=== PATIENT | male | born 1950 | race Caucasian/White ===

== ENCOUNTER 2020-07-28 10:42 | Observation (INO) ==
--- NOTE | 2020-06-30 09:05 | PAT Medication Instructions ---
Medication Instructions Date of Service June 30, 2020 Home Medications Medication Instructions Recorded Kendra Toth #1 ea 05/27/20 meloxicam 15 mg tablet 7.5 mg PO QAM Prostate Health Otc 1 tab PO BID amlodipine-valsartan 1 tab PO QPM ascorbic acid (vitamin C) [Vitamin C] 1,000 mg PO QAM cholecalciferol (vitamin D3) [Vitamin D3] 125 mcg PO QAM ASK your surgeon for instructions meloxicam 15 mg tablet 7.5 mg PO QAM STOP taking 2 weeks before surgery (or as soon as possible if surgery is within 2 weeks) Prostate Health Otc 1 tab PO BID DO NOT take the morning of surgery ascorbic acid (vitamin C) [Vitamin C] 1,000 mg PO QAM cholecalciferol (vitamin D3) [Vitamin D3] 125 mcg PO QAM Take evening before surgery amlodipine-valsartan 1 tab PO QPM Other Notes If you have any questions please call us at [phone] or [phone] or [phone] or [phone]
--- NOTE | 2020-07-04 12:35 | Anesthesiology Consultation ---
Date of Service July 04, 2020 Assessment & Plan (1) Encounter for pre-operative examination: COVID screening: Per assessment on 07/04: Travel screen negative, no known COVID- 19 positive contacts or current COVID-19 related symptoms. Patient fully vaccinated. Surgeon arranging preop COVID testing (scheduled 07/22; [facility]). Awaiting results. Chart Review Chart Review: Acceptable Risk for Surgery and Patient seen in Pre Admission Testing Teaching & Discussion Pre-Anesthesia Teaching/Discussion Notes: Instructed NPO after midnight before surgery,except medications with 15 cc of water. Medication instructions provided according to the PAT guidelines. History Surgery Operation Date: 07/28/20 07:30 Proposed Procedures p Right Unilateral Comparmental Arthropasty Versus - Lenny Wang MD s Right Total Knee Arthroplasty - Lenny Wang MD Height/Weight Height: 5 ft 10 in Weight: 106.4 kg Allergies Allergy/AdvReac Type Severity Reaction Status Date / Time No Known Allergies Allergy Verified 06/24/20 10:50 Medications Home Medications Medication Instructions Recorded Confirmed Last Taken meloxicam 15 mg tablet 7.5 mg PO QAM 05/05/20 06/24/20 Unknown Wheeled Walker #1 ea 05/27/20 05/27/20 Unknown Prostate Health Otc 1 tab PO BID 06/24/20 06/24/20 Unknown amlodipine-valsartan 1 tab PO QPM 06/24/20 06/24/20 Unknown ascorbic acid (vitamin C) [Vitamin 1,000 mg PO QAM 06/24/20 06/24/20 Unknown C] cholecalciferol (vitamin D3) 125 mcg PO QAM 06/24/20 06/24/20 Unknown [Vitamin D3] alfuzosin 10 mg tablet,extended 10 mg PO DAILY #30 tab 07/04/20 07/04/20 Unknown release 24 hr Past Medical History Medical History Hypertension Obesity Right knee DJD Exercise / Class Metabolic Activity II 4-5 Yardwork/Stairs/Walk up hill (one flight of stairs (no chest pain, no sob)) Past Family History Family History (Updated 07/04/20 @ 14:22 by Jhonny Blackwell) Sister Family history of diabetes mellitus Mother Diabetes Hypertension Father Lung cancer Past Surgical History Surgical History History of colonoscopy 2020 History of hand surgery Left History of herniorrhaphy Umbilical Past Anesthesia History No Hx of Anesthesia Complications and No Family Hx of Anesthesia Complications History of PONV No Hx of PONV and No Hx of Motion Sickness Social History Smoking Status: Never smoker Do You Dip or Chew Tobacco: No Hx Alcohol Use: Yes Alcohol type: beer alcohol intake frequency: a few times a week Hx Substance Use: No Review of Systems No snoring. Patient denies chest pain, shortness of breath, dyspnea on exertion, fever, chills, cough, wheezing, palpitations. Physical Exam Vital Signs VITALS BP 122/72 P 70 TEMP 98.5 SP02 96%RA RESP 16 PHYSICAL Full cervical extension range of motion. Full TMJ range of motion. TMD 3.5 finger breaths Mallampati Score 2 Dentition: intact, + implants (upper front) Lungs: clear throughout to auscultation Cardiac: regular rate and rhythm, no murmurs noted Spine: normal Carotid arteries: negative bruit Extremities: no edema Testing Laboratory Results 07/04/20 12:56 07/04/20 12:56 PT 9.8 Seconds (9.0-12.0) 07/04/20 12:56 INR 1.0 (0.9-1.1) 07/04/20 12:56 APTT 24.7 Seconds (21.0-31.0) 07/04/20 12:56 Blood Type A Positive 07/04/20 12:56 Antibody Screen NEGATIVE 07/04/20 12:56 Electrocardiogram Date: 07/04/20 Sinus rhythm with first-degree AV block at 61 bpm. Otherwise normal ECG. Chest X-Ray Date: 07/04/20 FINDINGS: Lung volumes are normal. Lungs are clear. There is no pneumothorax or pleural effusion. Cardiac size is normal. Mediastinal contours are normal. There is no evidence for pulmonary edema. IMPRESSION: No acute cardiopulmonary findings.
--- NOTE | 2020-07-04 13:38 | XRay Report ---
XR chest Pre-admission PA/Lat CLINICAL HISTORY: Preoperative evaluation. COMPARISON STUDY: No previous studies for comparison. FINDINGS: Lung volumes are normal. Lungs are clear. There is no pneumothorax or pleural effusion. Car diac size is normal. Mediastinal contours are normal. There is no evidence for pulmonary edema. IMPRESSION: No acute cardiopulmonary findings. ACT 112: Negative or not required by law. Electronically signed by: Lizandro Tavera M.D. 07/04/2020 1:36 PM
[2020-07-04 14:04] LABS: Basophils # (auto) 0.03 K/uL (0-0.2); Basophils % (auto) 0.5 %; Eosinophils % (auto) 6.7 %; Hematocrit (blood only) 41.3 % (42-52); Hemoglobin 14.7 g/dL (14.0-18.0); Immature Granulocytes # (auto) 0.02 K/uL (0.00-0.02); Immature Granulocytes % (auto) 0.3 %; Lymphocytes # (auto) 2.03 K/uL (1.2-3.4); Lymphocytes % (auto) 34.2 %; Mean Corpuscular Hemoglobin 32.5 pg (25-34); Mean Corpuscular Hgb Conc 35.6 g/dL (32-36); Mean Corpuscular Volume 91.2 fL (80-100); Mean Platelet Volume 11.1 fL (7.4-10.4); Monocytes # (auto) 0.65 K/uL (0.11-0.59); Monocytes % (auto) 10.9 %; Neutrophils # (auto) 2.81 K/uL (1.4-6.5); Neutrophils % (auto) 47.4 %; Platelet Count 183 K/uL (130-400); RDW Coefficient of Variation 13.2 % (11.5-14.5); RDW Standard Deviation 43.7 fL (36.4-46.3); Red Blood Count 4.53 M/uL (4.7-6.1); White Blood Count 5.94 K/uL (4.8-10.8)
[2020-07-04 14:17] LABS: Partial Thromboplastin Ratio 0.9; Partial Thromboplastin Time 24.7 Seconds (21.0-31.0); Prothrombin Time 9.8 Seconds (9.0-12.0)
[2020-07-04 14:18] LABS: BUN Creatinine Ratio 25.6 (10-20); Calcium 8.7 mg/dl (8.5-10.1); Creatinine Clr Calc Pharmacy 91.9 ml/min; Est GFR (African American) 96.2; Potassium 4.4 mmol/L (3.5-5.1)
--- NOTE | 2020-07-04 14:24 | Electrocardiogram Report ---
Test Reason : Blood Pressure : / mmHG Vent. Rate : 061 BPM Atrial Rate : 061 BPM P-R Int : 212 ms QRS Dur : 082 ms QT Int : 418 ms P-R-T Axes : 072 087 054 degrees QTc Int : 420 ms Sinus rhythm with 1st degree A-V block Otherwise normal ECG No previous ECGs available Confirmed by Pillo Gonzalez ([id number]) on 07/04/2020 2:23:57 PM Referred By: Lenny Wang Confirmed By:Pillo Gonzalez
--- NOTE | 2020-07-23 12:48 | History and Physical Report ---
DATE OF ADMISSION: 07/28/2020 CHIEF COMPLAINT: Persistent progressive right medial knee pain, discomfort and swelling. HISTORY OF PRESENT ILLNESS: The patient is a 70-year-old very active gentleman who presents for followup and treatment of his right knee. He now has about a 6-month history of increasing medial knee pain and discomfort, unresponsive to conservative treatment. No real particular injury. Just kind of started insidiously. He has been through extensive conservative treatment including medicines as well as therapy and exercises as well as multiple aspirations and injections. Despite this, he continues to be bothered by medial pain and swelling. 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 He limps all the time and worse as the day goes on. He has nighttime pain. PAST MEDICAL HISTORY: 1. Hypertension. 2. Obesity with BMI of 34. PAST SURGICAL HISTORY: Includes, 1. Hernia repair. 2. Left small finger surgery. ALLERGIES: None. CURRENT MEDICATIONS: Include, 1. Amlodipine. 2. Meloxicam. SOCIAL HISTORY: A 70-year-old male. He is from [place]. He does not smoke. FAMILY HISTORY: Noncontributory. REVIEW OF SYSTEMS: Negative for diabetes, neurologic problem, vascular problem, bleeding disorders. No chest pain or shortness of breath. No history of DVT or PE. PHYSICAL EXAMINATION: GENERAL: Shows a pleasant, middle-aged male, looks to be in pretty good health. HEENT: Benign. NECK: Supple, no lymphadenopathy. LUNGS: Clear to auscultation. HEART: Has a regular rate and rhythm. ABDOMEN: Soft, nontender, nondistended. EXTREMITIES: Grossly neurovascularly intact except as follows: Examination of the right knee reveals the patient walks with a bit of a limp. He has got a varus deformity to his knee. He has got a moderate sized knee effusion. Range of motion is full extension to 125 degrees of flexion. There is no instability. ACL appears intact. X-RAYS: X-rays of the right knee are reviewed. It shows a moderately advanced medial compartment DJD. He has got 50% loss of his medial joint space. MRI was also reviewed. It shows advanced medial compartment arthritis. He does have tearing of his medial meniscus, but the meniscus is extruded out of the joint. He has got bone marrow changes in the medial femoral condyle and medial tibial plateau. Large knee joint effusion. ASSESSMENT: A 70-year-old male with a 6-month history of persistent progressive right knee pain and discomfort, unresponsive to conservative care. This all points to the medial aspect of his knee where he is developing increasing arthritic problems. He is having trouble doing his job and maintaining his business due to the pain. PLAN: We talked about treatment options. He has failed conservative treatment. We are going to proceed with a right partial knee replacement. If we get in there and the arthritis is too extensive, we will do a full knee replacement. The risks and benefits of this procedure were explained to the patient including but not limited to DVT, PE, , infection, neurological injury, vascular injury, bleeding problem, pain, limited range of motion, stiffness, failure to relieve his symptoms, incomplete relief of symptoms, need for further surgery in the future, fracture, dislocation, and need for conversion to a full knee replacement. The patient understands and desires to proceed. Informed consent was obtained.
[~2020-07-28 10:42] MED LIST: ACETAMINOPHEN 500 MG TAB PO SCH; BUPIVACAINE 0.25% 30 ML VIAL ONE; BUPIVACAINE 0.5 % 5 MG/1 ML PF 10ML VIAL ONE; BUPIVACAINE LIPOSOME/PF 266 MG, BUPIVACAINE/EPINEPHRINE 50 ML, SODIUM CHLORIDE 0.9% 30 ... INFIL SCH; EPINEPHrine INJ 1 MG/ML AMP ONE; FAMOTIDINE 20 MG TAB PO SCH; GABAPENTIN 300 MG CAP PO SCH; LR 500ML BOLUS, THEN 15ML/HR IV SCH; LR 60ML/HR IV SCH; Scopolamine 1 MG TDSY TD SCH; TRANEXAMIC ACID 1,000 MG **IV Intra-op IV SCH; ceFAZolin 2000MG 2,000 MG/15 ML SYR IV SCH
--- NOTE | 2020-07-28 10:55 | History & Physical Bridge Note ---
Date of Service July 28, 2020 History & Physical Bridge Note I have examined the patient, reviewed the History & Physical and in the interval since the performance of the History & Physical I have noted the following changes of clinical significance: no changes noted
[2020-07-28] MEDS ORDERED: MIDAZOLAM HCL 1 MG/ML 2ML VIAL ONE (11:41)
[2020-07-28] MEDS ORDERED: PROPOFOL IV EMULSION 10 MG/ML 20 ML VIAL IV ONE ×5 (11:42→16:05)
[2020-07-28] MEDS ORDERED: ONDANSETRON INJ 2 MG/ML 2 ML VIAL IV PRN ×2 (11:50→17:07)
[2020-07-28] MEDS ORDERED: HYDROmorphone INJ 2 MG/ML SYR/VIAL IV PRN (11:50)
[2020-07-28] MEDS ORDERED: ePHEDrine sulfate 50 MG/ML AMP IV PRN (11:50)
[2020-07-28] MEDS ORDERED: ATROPINE SULFATE 0.1 MG/ML 10ML SYR IV PRN (11:50)
[2020-07-28] MEDS ORDERED: fentaNYL citrate 100 MCG/2 ML VIAL IV PRN (11:50)
[2020-07-28] MEDS ORDERED: BUPIVACAINE LIPOSOME 1.3% 266 MG/20 ML VIAL ONE (12:53)
[2020-07-28] MEDS ORDERED: SODIUM CHLORIDE 0.9% PF 50 ML VIAL ONE (12:53)
[2020-07-28] MEDS ORDERED: EPINEPHrine INJ 1 MG/ML AMP ONE (12:53)
[2020-07-28] MEDS ORDERED: BUPIVACAINE 0.25% 30 ML VIAL ONE (12:53)
[2020-07-28] MEDS ORDERED: VANCOMYCIN HCL 1000MG/20ML VIAL ONE ×2 (14:52→15:24)
[2020-07-28] MEDS ORDERED: fentaNYL citrate 100 MCG/2 ML VIAL ONE (15:25)
[2020-07-28] MEDS ORDERED: ceFAZolin 1000MG 1,000 MG/7.5 ML SYR IV ONE (16:10)
--- NOTE | 2020-07-28 16:19 | Post Operative Brief Note ---
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 Right Knee Bone and Tissue Drains Grey Catheter Anesthesia Type Spinal MAC Complications none Disposition Accompanied Patient To Recovery: No Disposition: Recovery Room
--- NOTE | 2020-07-28 16:44 | Anesthesiology Progress Note ---
Date of Service July 28, 2020 Anesthesia Post Procedure Vital Signs Vital Signs: Temp Pulse Pulse Resp BP BP Pulse Ox 07/28/20 16:35 59 L 14 141/66 H 98 07/28/20 16:27 36.6 C 67 17 117/75 97 07/28/20 11:10 37.1 C 65 18 159/78 H 92 Transfer of Care Handoff Completed per policy Notes Mental Status: alert / awake / arousable and participated in evaluation Patient Amnestic to Procedure: Yes Nausea / Vomiting: adequately controlled Pain: adequately controlled Airway Patency, RR, SpO2: stable & adequate BP & HR: stable & adequate Hydration State: stable & adequate Anesthetic Complications: no major complications apparent and Pt Satisfied with anesthetic care
--- NOTE | 2020-07-28 16:53 | XRay Report ---
RIGHT KNEE 2 VIEWS History: Right total knee arthroplasty. Degenerative arthritis. Postop. FINDINGS: The patient is status post a right total knee arthroplasty. The hardware is intact. No frac ture or dislocation. Skin jorge are in place. IMPRESSION: Right total knee arthroplasty. No evidence for hardware complication. ACT 112: Negative or not required by law. Electronically signed by: Francisco Goodson M.D. 07/28/2020 4:51 PM
[2020-07-28] MEDS ORDERED: NALOXONE HCL 0.4 MG/1 ML VIAL/CARP IV PRN (17:07)
[2020-07-28] MEDS ORDERED: TAMSULOSIN HCL 0.4 MG CAP PO PRN (17:07)
[2020-07-28] MEDS ORDERED: METOCLOPRAMIDE HCL INJ 5 MG/ML 2 ML VIAL IV PRN (17:07)
[2020-07-28] MEDS ORDERED: MAGNESIUM HYDROXIDE SUSP 30 ML UDC PO PRN (17:07)
[2020-07-28] MEDS ORDERED: oxyCODONE HCL IR 5 MG TAB (IMMEDIATE RELEASE) PO PRN (17:07)
[2020-07-28] MEDS ORDERED: ALUMINUM/MAGNESIUM SUSP 30 ML UDC PO PRN (17:07)
[2020-07-28] MEDS ORDERED: bisacodyL 10 MG SUPP PR PRN (17:07)
[2020-07-28] MEDS ORDERED: HYDROmorphone INJ 0.5 MG/0.5 ML SYR IV PRN (17:07)
[2020-07-28] MEDS: Scopolamine CHECK PATCH PLACEMENT SCH (17:26)
[2020-07-28] MEDS: KETOROLAC TROMETHAMINE 15 MG/ML VIAL IV SCH (17:54)
[2020-07-28] MEDS: SODIUM CHLORIDE 0.9% 1000ML 1,000 ML IV SCH (17:54)
--- NOTE | 2020-07-28 18:29 | Operative Report ---
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 There was not any significant eburnation. He had a large knee joint effusion. He did have a quarter sized grade 4 lesion of his trochlea. The patella was fairly well-preserved. The lateral compartment was well-preserved. Fluids 1700 cc. Specimens Right knee sent for pathology. Anesthesia Type Spinal MAC Complications none Disposition Accompanied Patient To Recovery: No Disposition: Recovery Room Indications Patient is a 70-year-old very active gentleman has had a 6-month history of have progressive increasing right knee pain discomfort unresponsive conservative care. X-rays showed significant medial compartment arthritis. An MRI showed significant bone marrow edema at the medial femoral condyle medial till plateau as well as extrusion medial meniscus and a large knee joint effusion. Patient failed all conservative measures and elected proceed with surgical treatment. The plan was to do a partial or total knee replacement. Description of Procedure Operative implants consist of: 1. Biomet Vanguard size 72.5 right posterior stabilized femoral component. 2. Biomet size 79 tibial tray. 3. 12 mm posterior stabilized polyethylene insert. 4. 31 x 8 all polypatella. The patient was taken to the operating, identified, placed on the operating table supine position but all contact areas were properly padded IV antibiotics tried by anesthesia team. A spinal anesthetic and abductor canal block had provided in the holding area. Grey catheter was placed in sterile fashion a right thigh turn was then placed in the right lower extremities and prepped and draped in usual sterile fashion. The right leg was elevated exsanguinated with use of an Esmarch interspace at 300 mmHg. An anterior approach to the right knee was then performed to a longitudinal incision beginning at the superior pole of the patella and extending just medial to the tibial tubercle. Sharp dissection got through subcutaneous tissue to the tissues to the level of the extensor mechanism. A medial parapatellar arthrotomy incision was made. Some subperiosteal dissection was carried out medially. Great care was taken throughout the procedure protect the medial collateral ligament. The fat pad was dissected from each patella tendon. I then flexed the knee. The osteophytes from the intercondylar notch were removed. The medial compartment was obviously worn. I examined the rest of the knee. The ACL was intact. The lateral compartment was well-preserved. There was 1 central area of the trochlea about the size of a quarter with some grade 4 changes but I felt this was acceptable to proceed with partial knee replacement as he has no patellofemoral symptoms. The femur was sized to a size large. The area tibial alignment guide was placed in the interface of the tibia and attached to the large spoon the tibial guide was pinned in place. The proximal tibial cut was made. The cut seemed a little bit shallow so I do not remove the vilma and I took an additional 2 mm above bone. I then sized the tibia to a D. Attention drawn the femur. The distal femur stem with a sharp drill bit intramedullary guide was placed. A large template was then attached to the IM guide and the holes were drilled for the femoral component. There seemed to be a slight bit of an abnormal angle to this and I examined it many times but it was what the guide had to place test and seemed within a very functional range of. The posterior cutting guide was placed and posterior cut was made. The 0 spigot was placed in the distal femur was milled. The medial meniscus was excised. I then placed the femoral component along with a tibial tray and the 3 feeler gauge fit appropriate but just a little bit tight but felt this was appropriate. Brought the knee out in extension and I could not even place the #1 medina. Therefore we proceeded to milled the distal femur with a 3 spigot. I then trialed the knee again and could only get the 1 as she had him in in extension. Therefore I milled the distal femur an additional 2 mm. I then felt the knee was quite balanced with the 3 feeler gauge in both flexion and extension. Everything seemed to track appropriately. We elect to place these implants. Trial implants removed. The cement drill was used to create holes in the distal femur for cement interdigitation. The posterior osteophyte cutting guide was placed and the posterior osteophyte was removed along with the milling device for the anterior portion of the femoral component. The tibial tray was then pinned in place and the toothbrush blade was used to create the defect in the proximal tibia for the tibial tray. I then trialed the knee. I could foot the 3 feeler gauge in part quite appropriately but I cannot even place the 3 trial implant. Having done this and feeling like all the measurements were just off slightly in this gentleman's knee and the femoral component seem to be just slightly malaligned I felt most appropriate to switch to a total knee replacement as I did not think this is then aware. Therefore I will I left the trial implants in place and we elect to proceed with total knee replacement. The knee incision was extended proximally. A medial patellar arthrotomy was then extended proximally as well. The knee was flexed. The ACL and PCL were released from the distal femur and the tibia subluxated anteriorly. External tibial alignment jig was then placed in the interface the tibia and adjusted to 14 mm medially. I made the cut flush with the previous tibial cut to take it no additional bone medially. Did take a fairly large piece off laterally. Sized the tibia to a size 79. Attention drawn the femur. Distal femur turned the sharp drill. Intramedullary canal was suction. A right 6 degree valgus cutting guide was placed. The distal femoral cutting block was pinned in place. Distal femoral cut was made to take an additional 3 mm of bone off distal femur. The femur was then sized to a size 72.5. The 8 cutting block was pinned parallel to the epicondylar axis. We could not really make this a high degree due to the previous posterior cut medially and I had alignment with the trochlea and Whitesides lines as as well as the epicondylar axis. The AP cutting block was pinned in place and the anterior cut, anterior chamfer, posterior cut, posterior chamfer cuts were made. Box cutting guide was placed in just slight lateral box cut was made. The knee was flexed. The remnants of the medial lateral menisci were excised. The osteophytes were taken off the posterior aspect of the femur. A trial femoral component was placed. The tibial tray was pinned in maximum external rotation and the drill and stem punch were used to create defect in proximal tibia for the tibial tray. I then trialed the knee and the 12 mm insert fit most appropriately. Attention drawn the patella. The patella was cleaned of all soft tissues. Patella thickness measured 25 mm in thickness was cut down 15th it was sized to a size 31 patella. The locals were drilled for 31 patella. The lateral osteophyte was removed. Patella button was placed. Knee was taken through range of motion patella tracked nicely with no thumbs test. Attention turned to placing permanent components. Nupathe all trial components removed. A bone plug was placed in the distal femur limit blood loss. Double batch Palacos G cement was mixed. I did add an additional gram of vancomycin to the cement. Then we then went to place the femoral component and realized that the wrong side implant was selected. A left distal femur was selected. Therefore we remove the implant and all cement. I left the tourniquet down for a total tourniquet time of 107 minutes at this time. I irrigated the wound extensively. We had to get out a new implant and mixed a new batch of cement. Once a new set of implants was opened and not ready for implantation the tourniquet with then placed up after a 10-minute downtime. A second batch of Palacos cement was mixed with additional gram of vancomycin. A right size 72.5 posterior stabilized femoral component, size 79 tibial tray, a 12 mm posterior stabilized polyethylene insert, and a 31 x 8 all polypatella instrument placed. Knee was brought out in full extension total cement hardened. Final cement check was then performed. The wound was irrigated with copious amounts of normal saline. I injected locally with 100 cc of combination of 20 cc of Exparel, 30 cc normal saline, 50 cc of quarter percent Marcaine with epinephrine. Patient did receive 1 g tranexamic acid. The tourniquet was then let down for second tourniquet time of 16 minutes. Hemostasis assured use electrocautery. The extensor mechanism closed with combination 1 PDS suture #1 Vicryl suture in [id number] fashion. Extensor mechanism checked found to be intact the subcutaneous tissue then closed with 2 Dexon suture in a buried knot fashion skin was closed with skin jorge. Leg was then cleaned and dried a sterile dressing was Xeroform, 4 x 4's, sterile cast padding, Shoaib bandage applied. Patient then transferred to the recovery room in stable condition. Patient tolerated procedure well and there were no complications. Teo Rosenberg, my physician entry level marketing assistant, was present for the entire procedure. His assistance was essential and required for appropriate patient positioning, prepping and draping, surgical exposure, performing the technical details of the operation, placement the implants, closure of the wound, and placement of the sterile bandage. I attest to the content of the Intraoperative Record and any orders documented therein. Any exceptions are noted below.
[2020-07-28] MEDS: TAPENTADOL HCL ER 50 MG TABCR PO SCH (20:22)
[2020-07-28] MEDS: ASPIRIN 81 MG ECTAB PO SCH (20:31)
[2020-07-28] MEDS: DOCUSATE SODIUM 100 MG CAP PO SCH (20:31)
[2020-07-28] MEDS ORDERED: [UNRECOGNIZED DRUG - OTHER] PO SCH (21:00)
[2020-07-28] MEDS ORDERED: SENNA 8.6 MG TAB PO SCH (21:00)
[2020-07-28] MEDS ORDERED: VALSARTAN 80 MG TAB PO SCH (21:00)
[2020-07-28] MEDS ORDERED: amLODIPine BESYLATE 5 MG TAB PO SCH (21:00)
[2020-07-28] MEDS: ACETAMINOPHEN 500 MG TAB PO SCH (21:55)
[2020-07-28] MEDS: ceFAZolin 2000MG 2,000 MG/15 ML SYR IV SCH (21:57)
[2020-07-28] MEDS ORDERED: TRANEXAMIC ACID / 0.7% NACL 1,000 MG/100 ML BAG IV SCH (22:24)
[2020-07-29] MEDS: KETOROLAC TROMETHAMINE 15 MG/ML VIAL IV SCH ×3 (00:12→12:10)
[2020-07-29] MEDS: Scopolamine CHECK PATCH PLACEMENT SCH ×2 (00:12→08:20)
[2020-07-29] MEDS: SODIUM CHLORIDE 0.9% 1000ML 1,000 ML IV SCH (03:14)
[2020-07-29 05:27] LABS: Hematocrit (blood only) 37.8 % (42-52); Hemoglobin 13.4 g/dL (14.0-18.0); Mean Corpuscular Hemoglobin 32.4 pg (25-34); Mean Corpuscular Hgb Conc 35.4 g/dL (32-36); Mean Corpuscular Volume 91.5 fL (80-100); Mean Platelet Volume 10.8 fL (7.4-10.4); Platelet Count 140 K/uL (130-400); RDW Standard Deviation 43.5 fL (36.4-46.3); Red Blood Count 4.13 M/uL (4.7-6.1); White Blood Count 8.66 K/uL (4.8-10.8)
[2020-07-29 05:56] LABS: BUN Creatinine Ratio 20.3 (10-20); Calcium 7.4 mg/dl (8.5-10.1); Creatinine Clr Calc Pharmacy 112.8 ml/min; Est GFR (African American) 108.7 ml/min; Est GFR (Non-African American) 93.7 ml/min; Potassium 4.2 mmol/L (3.5-5.1)
[2020-07-29] MEDS: ACETAMINOPHEN 500 MG TAB PO SCH ×2 (06:15→13:19)
[2020-07-29] MEDS: ceFAZolin 2000MG 2,000 MG/15 ML SYR IV SCH (06:20)
[2020-07-29] MEDS ORDERED: dexAMETHasone 10 MG in SYRINGE 0 ML IV SCH (08:00)
[2020-07-29] MEDS: TAPENTADOL HCL ER 50 MG TABCR PO SCH (08:21)
[2020-07-29] MEDS: ASPIRIN 81 MG ECTAB PO SCH (08:23)
[2020-07-29] MEDS: DOCUSATE SODIUM 100 MG CAP PO SCH (08:23)
[2020-07-29] MEDS ORDERED: CHOLECALCIFEROL 1,000 UNITS 25 MCG TAB PO SCH (09:00)
[2020-07-29] MEDS ORDERED: ALFUZOSIN HCL 10 MG TAB PO SCH (09:00)
[2020-07-29] MEDS ORDERED: ASCORBIC ACID 500 MG TAB PO SCH (09:00)
[2020-07-29] MEDS ORDERED: MULTIVITAMIN TAB PO SCH (09:00)
--- NOTE | 2020-07-29 09:03 | Progress Notes ---
DATE: 07/29/2020 SUBJECTIVE: A 70-year-old gentleman postoperative day 1 from a right knee replacement. He is doing pretty well this morning. A little bit more painful than the last night. No chest pain or shortness of breath. Not feeling dizzy or lightheaded. OBJECTIVE: VITAL SIGNS: Temperature 37.2. Vital signs stable. GENERAL: Shows a pleasant, middle-aged male. He is lying in bed, looks pretty comfortable this morning. EXTREMITIES: Examination of the right leg reveals the dressing to be clean, dry and intact. Leg is well aligned. He can dorsiflex and plantarflex his foot appropriately. He is neurologically intact. LABORATORY DATA: Hemoglobin 13.4. Hematocrit 37.8. Electrolytes are stable. ASSESSMENT: A 70-year-old gentleman postop day 1 from right knee replacement, doing pretty well. Pain is controlled. He is neurologically intact. PLAN: 1. DVT prophylaxis including thigh-high TEDs, SCDs, and aspirin twice a day. 2. PT/OT. Weight bear as tolerated. Right total knee protocol. 3. Pain control, doing well with current pain regimen. 4. Disposition: Plan is to discharge to home with some home health once adequately recovered, medically stable and pain controlled.
--- NOTE | 2020-07-29 10:48 | Anesthesiology Progress Note ---
Date of Service July 29, 2020 Anesthesia Post Procedure Vital Signs Vital Signs: Temp Pulse Pulse Resp BP BP Pulse Ox 07/29/20 07:30 37.1 C 59 L 16 138/74 94 07/29/20 03:13 37.2 C 64 16 139/71 93 07/28/20 22:00 36.3 C L 63 16 153/72 H 97 07/28/20 20:00 36.7 C 56 L 16 177/78 H 97 07/28/20 19:02 36.4 C L 56 L 18 151/76 H 95 07/28/20 18:00 36.4 C L 51 L 16 141/69 H 95 07/28/20 17:27 36.4 C L 57 L 14 143/71 H 94 07/28/20 17:00 36.5 C 60 16 147/72 H 94 07/28/20 16:45 36.3 C L 62 18 136/71 94 07/28/20 16:35 59 L 14 141/66 H 98 07/28/20 16:27 36.6 C 67 17 117/75 97 07/28/20 11:10 37.1 C 65 18 159/78 H 92 Pain Intensity Right Knee: Pain Intensity: 2 Notes Mental Status: alert / awake / arousable and participated in evaluation Patient Amnestic to Procedure: Yes Nausea / Vomiting: adequately controlled Pain: adequately controlled Airway Patency, RR, SpO2: stable & adequate BP & HR: stable & adequate Hydration State: stable & adequate Neuraxial Anesthesia: was administered and sensory block resolved Anesthetic Complications: no major complications apparent and Pt Satisfied with anesthetic care
[2020-07-30] MEDS ORDERED: CeleBREX 200 MG CAP PO SCH (21:00)
--- NOTE | 2020-08-02 06:34 | Discharge Summary ---
Date of Service August 02, 2020 Discharge Data Procedures Performed Operation Date: 07/28/20 12:30 Actual Procedures p Right Total Knee Arthroplasty(Right) - Lenny Wang MD Hospital Course (1) Status post total right knee replacement: This patient is a 70 year old admitted on 07/28/20 and underwent total knee arthroplasty. He tolerated the procedure well and there were no complications. Transferred to the PACU post op and later to the orthopedic floor for further care. He was given ancef for antibiotic prophylaxis. He was also given SAPPHIRE stockings, SCDs, and aspirin for DVT prophylaxis. Hemoglobin, hematocrit, and vital signs were monitored during his hospital stay and remained stable. Did not require any blood transfusions. There were no complications during his hospital stay. By post op day #1 the patient was tolerating a regular diet, pain was reasonably controlled with oral pain medicine, and he was participating in physical therapy. On post op day #1 the patient was discharged home and set up with home health care. He was given printed discharge instructions including prescriptions for extra strength tylenol, aspirin, and oxycodone. Continue physical therapy, weight bearing as tolerated. Continue SAPPHIRE stockings. Follow up approximately 2 weeks post op or sooner if there are problems or concerns. Coding Level of Care Code None Diagnoses Status post total right knee replacement Z96.651
== END 2020-07-29 13:30 | disposition home health service (06) ==
LOC: 3E 10:42 → ASU 10:42